=== PATIENT | male | born 1950 | race Caucasian/White ===

== ENCOUNTER 2018-12-06 19:16 | Emergency (ER) | payer OTHER ==
[~2018-12-06] VITALS: Ht 182.9 cm; Wt 106.8 kg
[2018-12-06 19:18] VITALS: BP 145/77
== END 2018-12-06 21:05 | disposition home or self-care (01) ==
LOC: ED 21:03
DX: M79.672 Pain in left foot (principal)
CPT/HCPCS: 99284